=== PATIENT | female | born 1995 | race Caucasian/White ===

== ENCOUNTER 2023-08-19 20:46 | Emergency (ER) | payer BC, SELFPAY ==
[2023-08-19 20:54] VITALS: BP 129/81; PULSE 92; RESP 16; TEMP 36.3; O2SAT 99; BMI 22.3
--- NOTE | 2023-08-19 20:59 | US_ITS ---
Patient: PABLO CAVAZOS Facility:?[facility] Patient ID:?[id number] Site Patient ID:?[id number]. Site :?1993 Study:?US-OB Pelvis OB TV-08/19/2023 10:31:59 PM Ordering Physician:?ISAURO KELLOGG M.D. Final Report: INDICATION: 6 weeks - cramping/bleeding. TECHNIQUE: Ultrasound OB pelvis transabdominal and transvaginal. Real-time melendrez-scale imaging of the pelvis was performed. COMPARISON: None. FINDINGS: No sign of intrauterine or ectopic . Endometrium is empty and measures 8 mm in thickness. No signs of hemorrhage. scar is noted. The uterus is retroverted. The ovaries are of normal size. Right paraovarian cyst measuring up to 1.0 cm, simple appearing. Trace free fluid noted in the cul-de-sac. IMPRESSION: No intrauterine or ectopic viable identified. Trace free fluid in the cul-de-sac, of unknown etiology. Dictated by Duc Ly MD @ 08/19/2023 11:45:46 PM Signed by:?Duc Ly MD @08/19/2023 11:45:46 PM (Electronic Signature)
[2023-08-19 21:26] LABS: Basophils Absolute Auto 0.03 K/uL (0.00-0.30); Basophils Percent Auto 0.3 % (0.0-3.0); Eosinophils Absolute Auto 0.22 K/uL (0.00-0.50); Eosinophils Percent Auto 2.5 % (0.0-7.0); Hematocrit 37.3 % (33.0-51.0); Hemoglobin* 12.5 gm/dL (12.0-16.0); Immature Granulocytes Abs Auto 0.01 K/uL (0.00-0.30); Immature Granulocytes Pct Auto 0.1 %; Lymphocytes Absolute Auto 2.18 K/uL (0.90-2.90); Lymphocytes Percent Auto 24.9 % (20-44); Mean Corpuscular HGB Conc 34 gm/dL (32-36); Mean Corpuscular Hemoglobin 30 pg (26-34); Mean Corpuscular Volume 89 fL (80-100); Monocytes Percent Auto 6.6 % (0.0-11.0); Neutrophils Absolute Auto 5.74 K/uL (1.7-7.0); Neutrophils Percent Auto 65.6 % (42.0-72.0); Platelet Count* 260 K/uL (140-440); Red Blood Count 4.17 m/uL (4.00-5.20); White Blood Count* 8.76 K/uL (4.50-11.00)
[2023-08-19 22:01] LABS: HCG Quantitative* 38.27 mIU/mL
[2023-08-19 22:27] LABS: Slide Review Reflex No
[2023-08-19 22:55] LABS: HCG Qualitative Serum* Positive (Negative)
--- NOTE | 2023-08-19 23:12 | ED_ITS ---
HPI - General Adult General Chief complaint: Vaginal Bleeding Stated complaint: vaginal bleeding, 6 wks preg Time Seen by Provider: 08/19/23 22:42 History of Present Illness HPI narrative: Patient started bleeding tonight close to amount of average menstrual cycle . 6 weeks . 1 previous 13 years ago. 27-year-old woman presenting with significant other to the emergency department with concern of vaginal bleeding. By LMP would estimate herself to be 6 weeks . Reviewing records was recommended to return to clinic at 8 weeks. Began having menstrual level bleeding this evening. By the time I am seeing Ms. Camarillo she has had prior ordered ultrasound in very busy emergency department. I have discussed findings with comfort station attendant. Initial labs were also ordered. She is not complaining of much pain. No shortness of breath or lightheadedness. History of prior placental abruption and delivery, C- section. Related Data Previous Rx's Medication Instructions Recorded sertraline 50 mg tablet 75 mg (1.5 x 50 mg) PO QDAY #135 05/28/23 tabs Allergies Allergy/AdvReac Type Severity Reaction Status Date / Time No Known Allergies Allergy Unknown Unverified 05/27/23 15:33 Review of Systems Status of ROS: Reports: 6 or more systems reviewed and unremarkable except as noted in History and below [facility] Medical History Abnormal Pap smear of cervix ?R87.619 - Unspecified abnormal cytological findings in specimens from cervix uteri (ICD-10) History of delivery ?Z87.51 - Personal history of pre-term labor (ICD-10) History of pre-eclampsia ?Z87.59 - Personal history of other complications of , childbirth and the puerperium (ICD-10) History of placental abruption ?Z87.59 - Personal history of other complications of , childbirth and the puerperium (ICD-10) History of anemia ?Z86.2 - Personal history of diseases of the blood and blood-forming organs and certain disorders involving the immune mechanism (ICD-10) Surgical History S/P section ?Z98.891 - History of uterine scar from previous surgery (ICD-10) Family History Family/Other Stroke High blood pressure Grandmother Thyroid cancer Grandmother Bleeding disorder Social History What is your current living situation?: I presently have a place to live Problems where you live: no known problems In the past 12 months, utilities in danger of being shut off: no In past 12 months, lack of transportation kept you from medical appts, meetings, work, or getting things needed for daily living: no In the past 12 mos, have been you worried that your food would run out before you had money to buy more?: never true Smoking Status: Never smoker Second hand tobacco smoke exposure: No How often do you have a drink containing alcohol: never AUDIT-C Alcohol total score: 0 Non-prescribed substance use: denies use How often does anyone, including family, friends and others, physically hurt you : never How often does anyone, including family, friends and others, insult or talk down to you: never How often does anyone, including family, friends and others, threaten you with harm: never How often does anyone, including family, friends and others, scream or curse at you: never Little interest or pleasure in doing things: not at all Feeling down, depressed, or hopeless: not at all Exam Narrative: Exam Narrative: Pleasant. Very calm. Seated the edge of the bed. Breathing easily. Cheeks look a little flushed. Here with appropriately attentive significant other. Vitals also noted. Reassuring. Regular rhythm reported. Const: Vital Signs, click to edit/add: Vital Signs - 24 hr 08/19/23 20:54 08/20/23 00:38 08/20/23 00:39 Temperature 97.3 F L 98.1 F 98.1 F Pulse Rate [Pulse Oximeter] 92 84 84 Respiratory Rate 16 16 16 Blood Pressure [Ri t Upper Arm] 129/81 118/74 118/74 Pulse Oximetry 99 99 Oxygen Delivery Me thod Room Air Room Air Documenting provider has reviewed patient's vital signs: yes Course Vital Signs Vital signs: Initial Vital Signs Temperature 97.3 F L 08/19/23 20:54 Temperature Source Temporal Artery Scan 08/19/23 20:54 Pulse Rate 92 08/19/23 20:54 Respiratory Rate 16 08/19/23 20:54 Blood Pressure 129/81 08/19/23 20:54 Blood Pressure Mean 97 08/19/23 20:54 Blood Pressure Position Sitting 08/19/23 20:54 Pulse Oximetry 99 08/19/23 20:54 Oxygen Delivery Method Room Air 08/19/23 20:54 Vital Signs Temperature 97.3 F L 08/19/23 20:54 Pulse Rate 92 08/19/23 20:54 Respiratory Rate 16 08/19/23 20:54 Blood Pressure 129/81 08/19/23 20:54 Pulse Oximetry 99 08/19/23 20:54 Oxygen Delivery Method Room Air 08/19/23 20:54 Temperature 98.1 F 08/20/23 00:39 Pulse Rate 84 08/20/23 00:39 Respiratory Rate 16 08/20/23 00:39 Blood Pressure 118/74 08/20/23 00:39 Pulse Oximetry 99 08/20/23 00:38 Oxygen Delivery Method Room Air 08/20/23 00:38 Medical Decision Making MDM Narrative Medical decision making narrative: Given description would have concern certainly of spontaneous miscarriage. Ectopic remains in differential. Cbc had been resulted prior to my s eeing Ms. Lucas. Hemoglobin of 12.5. She has been anemic in the past. HCG quantitative had not been resulted adding a urine qualitative hCG is positive quantitative eventually resulted at at 38. This would be quite inconsistent with 6 week . I discussed findings with comfort station attendant; noted empty uterus. Normal ovaries and a small paratubal cyst on the left. No ectopic. Need blood type yet. This was ordered. A+. RhoGAM not necessary This would appear to be a complete spontaneous miscarriage. With relatively normal hemoglobin and very low quantitative hCG serum, absent other developments, I do not think requires further follow-up. Radiology over-read of transvaginal ultrasound as below :?1993 Study:?US-OB Pelvis OB TV-08/19/2023 10:31:59 PM Ordering Physician:?HUMBERTO PERRY M.D. Final Report: INDICATION: 6 weeks - cramping/bleeding. TECHNIQUE: Ultrasound OB pelvis transabdominal and transvaginal. Real-time melendrez-scale imaging of the pelvis was performed. COMPARISON: None. FINDINGS: No sign of intrauterine or ectopic . Endometrium is empty and measures 8 mm in thickness. No signs of hemorrhage. scar is noted. The uterus is retroverted. The ovaries are of normal size. Right paraovarian cyst measuring up to 1.0 cm, simple appearing. Trace free fluid noted in the cul-de-sac. IMPRESSION: No intrauterine or ectopic viable identified. Trace free fluid in the cul-de-sac, of unknown etiology. See patient discharge plan further discussion Lab Data Lab results reviewed: Yes I reviewed the patient's lab results Labs: Lab Results 08/19/23 08/19/23 Range/Units 21:21 23:47 WBC 8.76 (4.50-11.00) K/uL RBC 4.17 (4.00-5.20) m/uL Hgb 12.5 (12.0-16.0) gm/dL Hct 37.3 (33.0-51.0) % MCV 89 (80-100) fL MCH 30 (26-34) pg MCHC 34 (32-36) gm/dL RDW Coeff of Ham 12.0 (11.5-15.5) % Plt Count 260 (140-440) K/uL Neut % (Auto) 65.6 (42.0-72.0) % Lymph % (Auto) 24.9 (20-44) % [place] % (Auto) 6.6 (0.0-11.0) % Eos % (Auto) 2.5 (0.0-7.0) % Baso % (Auto) 0.3 (0.0-3.0) % Neut # (Auto) 5.74 (1.7-7.0) K/uL Lymph # (Auto) 2.18 (0.90-2.90) K/uL [place] # (Auto) 0.60 (0.00-0.90) K/UL Eos # (Auto) 0.22 (0.00-0.50) K/uL Baso # (Auto) 0.03 (0.00-0.30) K/uL Abs Immat Gran (auto) 0.01 (0.00-0.30) K/uL Imm/Tot Granulo (auto) 0.1 % HCG, Qual Positive (Negative) HCG, Quant 38.27 mIU/mL Blood Type A Positive Discharge Plan Discharge Clinical Impression: Complete miscarriage, Vaginal bleeding Patient Disposition: Home w/ Parent or Adult Condition: Stable Additional Instructions: Since your blood type is A positive, you would not need a medication like RhoGAM in light of this bleeding/miscarriage. This small paraovarian cyst should not be an issue. Return for increasing bleeding such that you are soaking through 1 heavy pad an hour for 2 consecutive hours, marked increase in persistent abdominal pain, increasing shortness of breath or lightheadedness. Prescriptions: No Action sertraline 50 mg tablet 75 mg PO QDAY Qty: 135 3RF Follow Up/Referrals: Yazmin Jean, [employer] [Primary Care Provider] - Stand Alone Forms: [facility] Info Instructions
[2023-08-20 00:38] VITALS: BP 118/74; PULSE 84; RESP 16; TEMP 36.7; O2SAT 99
[2023-08-20 00:39] VITALS: BP 118/74; PULSE 84; RESP 16; TEMP 36.7
== END 2023-08-20 00:39 | disposition home or self-care (01) ==
PROVIDERS: Emergency Medicine Emergency Medical Services; Emergency Provider Family Medicine; PCP Registered Nurse
DX: O03.9 Complete or unspecified spontaneous abortion without complication (principal)
CPT/HCPCS: 36415; 76817; 81025; 84702; 84703; 85025; 86900; 86901; 99284

== ENCOUNTER 2023-11-27 11:23 | Outpatient (CLI) | payer BC, SELFPAY | END 2023-11-27 11:24 | disposition home or self-care (01) | LOC: NFLDREF 11:25 | PROVIDERS: Visit Provider Obstetrics & Gynecology | DX: O20.9 Hemorrhage in early pregnancy, unspecified (principal) | CPT/HCPCS: 84702 ==

== ENCOUNTER 2023-11-29 14:08 | Outpatient (CLI) | payer BC, SELFPAY ==
[2023-11-29 15:01] LABS: HCG Quantitative* < 2.39 mIU/mL
== END 2023-11-29 14:09 | disposition home or self-care (01) ==
LOC: LAB 14:09
PROVIDERS: Visit Provider Obstetrics & Gynecology
DX: O20.9 Hemorrhage in early pregnancy, unspecified (principal)
CPT/HCPCS: 36415; 84702

== ENCOUNTER 2024-04-08 08:11 | Outpatient (CLI) | payer BC, SELFPAY ==
--- NOTE | 2024-04-08 08:15 | CRLHL7_ITS ---
For Patients: As a result of the Cures Act, medical imaging exams and procedure reports are released immediately into your electronic medical record. You may view this report before your referring provider. If you have questions, please contact your health care provider. INDICATION: First trimester scan, establish dates. COMPARISON: None. TECHNIQUE: Real-time melendrez-scale imaging of the pelvis was performed. FINDINGS: Sonographic imaging demonstrates a single living intrauterine gestation. The embryo demonstrates a regular cardiac rate measuring 168 beats per minute. The embryo`s crown-rump length measurement of 1.8 cm corresponds to a gestational age of 8 weeks 2 days with a sonographic due date of 11/16/2024. There is a normal-appearing yolk sac. There are no gross abnormalities noted within the embryo at this early state of development. The gestational sac has a normal appearance. There is a 5.1 x 1.2 x 0.3 cm perigestational hemorrhage. The amount of fluid within the sac appears appropriate for gestational age. The cervix is closed. The myometrium appears normal. Corpus luteal cyst right ovary. Simple right adnexal cyst measures 1.2 cm. Trace pelvic free fluid. Incidental calcification within the left ovary measuring 1.1 cm. IMPRESSION: Single living intrauterine with sonographic gestational age 8 weeks 2 days and sonographic due date 11/16/2024. Dictated by Humberto Tracy MD @ 04/09/2024 6:08:48 PM (Electronically Signed)
== END 2024-04-08 08:12 | disposition home or self-care (01) ==
LOC: US 08:11
PROVIDERS: Visit Provider Registered Nurse
DX: Z34.91 Encounter for supervision of normal pregnancy, unspecified, first trimester (principal); Z3A.08 8 weeks gestation of pregnancy
CPT/HCPCS: 76817

== ENCOUNTER 2024-04-08 09:21 | Outpatient (CLI) | payer BC, SELFPAY ==
[2024-04-08 16:47] LABS: Chlamydia DNA Amplified* NOT DETECTED (No Detected); GC DNA Amplified* NOT DETECTED (No Detected)
[2024-04-09 21:58] LABS: HPV Source Cervix; HPV, High Risk by TMA Not Detected
== END 2024-04-08 09:22 | disposition home or self-care (01) ==
PROVIDERS: PCP Registered Nurse; Visit Provider Registered Nurse
DX: Z12.4 Encounter for screening for malignant neoplasm of cervix (principal); Z34.91 Encounter for supervision of normal pregnancy, unspecified, first trimester; Z3A.08 8 weeks gestation of pregnancy
CPT/HCPCS: 82565; 82570; 83021; 84156; 84450; 84460; 84520; 86592; 86703; 86704; 86706; 86762; 86787; 86803; 86850; 86900; 86901; 87086; 87340; 87491; 87591; 87624; 87625; 88141; 88142

== ENCOUNTER 2024-06-28 10:13 | Outpatient (CLI) | payer OTHER, SELFPAY | END 2024-06-28 10:14 | disposition home or self-care (01) | LOC: NFLDREF 10:14 | PROVIDERS: Visit Provider Obstetrics & Gynecology | DX: Z34.82 Encounter for supervision of other normal pregnancy, second trimester (principal); Z87.51 Personal history of pre-term labor; Z87.59 Personal history of other complications of pregnancy, childbirth and the puerperium | CPT/HCPCS: 85610; 85613; 85730; 86146; 86147 ==

== ENCOUNTER 2024-07-01 08:00 | Outpatient (CLI) | payer OTHER, SELFPAY | END 2024-07-01 08:01 | disposition home or self-care (01) | LOC: NFLDREF 07-04 01:51 | PROVIDERS: Visit Provider Registered Nurse | DX: O09.212 Supervision of pregnancy with history of pre-term labor, second trimester (principal); Z3A.16 16 weeks gestation of pregnancy; Z87.59 Personal history of other complications of pregnancy, childbirth and the puerperium | CPT/HCPCS: 82570; 84156 ==

== ENCOUNTER 2024-08-25 10:08 | Outpatient (CLI) | payer OTHER, SELFPAY | END 2024-08-25 10:09 | disposition home or self-care (01) | LOC: NFLDREF 08-29 00:04 | PROVIDERS: Visit Provider Obstetrics & Gynecology | DX: Z34.83 Encounter for supervision of other normal pregnancy, third trimester (principal) | CPT/HCPCS: 86592 ==

== ENCOUNTER 2024-08-25 10:09 | Outpatient (CLI) | payer OTHER, SELFPAY ==
--- NOTE | 2024-08-25 10:15 | CRLHL7_ITS ---
For Patients: As a result of the Century Cures Act, medical imaging exams and procedure reports are released immediately into your electronic medical record. You may view this report before your referring provider. If you have questions, please contact your health care provider. OB ULTRASOUND LMP: 02/11/2024. PARVEZ by LMP: 11/17/2024. GA: 28 w, 0 d. Single. Comparison: 06/21/2024. INDICATION: Marginal cord insert. TECHNIQUE: Real time grayscale imaging of the fetus was performed. Transabdominal. CERVIX: Not visualized. POSITIONING: Vertex. AMNIOTIC FLUID: 6.8 cm. SDP (N: greater than 2 x 1 cm) PLACENTA: Technique: Transabdominal. PLACENTA POSITION: Posterior. DOPPLER: heart rate: 157 bpm. BIOMETRY: BPD: 7.2 cm. 28 w, 6 d, 65 percent. HC: 26.7 cm. 29 w, 1 d, 54 percent. AC: 24.6 cm. 28 w, 6 d, 68 percent. FL: 5.6 cm. 29 w, 2 d, 73 percent. FL/AC ratio: 22.63 percent. HC/AC ratio: 1.09. EFW: 1318 g. Weight: 2 lbs, 14 oz. age by this US: 29 w, 0 d. PARVEZ by this US: 11/10/2024. Percentile by PARVEZ: 76 percent. IMPRESSION: 1. Sonographic gestational age 29 weeks 0 days and sonographic due date 11/10/2024. Sonographic age is 1 week ahead of the clinical age. 2. Estimated weight 76th percentile. Abdominal circumference 68th percentile. Humberto Tracy M.D. Diagnostic Radiologist [email or web address] JOANNA/zhane phelan/Dictated by: Humberto Tracy MD @ 08/25/2024 11:26:00 AM (Electronically Signed)
== END 2024-08-25 10:10 | disposition home or self-care (01) ==
LOC: US 10:09
PROVIDERS: Visit Provider Obstetrics & Gynecology
DX: O43.193 Other malformation of placenta, third trimester (principal); O36.63X0 Maternal care for excessive fetal growth, third trimester, not applicable or unspecified; Z3A.28 28 weeks gestation of pregnancy
CPT/HCPCS: 76816

== ENCOUNTER 2024-08-31 08:46 | Outpatient (CLI) | payer OTHER, SELFPAY | END 2024-08-31 08:47 | disposition home or self-care (01) | LOC: NFLDREF 09-02 23:33 | PROVIDERS: Visit Provider Obstetrics & Gynecology | DX: R73.09 Other abnormal glucose (principal) | CPT/HCPCS: 82951; 82952 ==

== ENCOUNTER 2024-09-22 08:25 | Outpatient (CLI) | payer OTHER, SELFPAY ==
--- NOTE | 2024-09-22 08:15 | CRLHL7_ITS ---
For Patients: As a result of the Century Cures Act, medical imaging exams and procedure reports are released immediately into your electronic medical record. You may view this report before your referring provider. If you have questions, please contact your health care provider. OB ULTRASOUND BIOPHYSICAL PROFILE, 09/22/2024 CLINICAL HISTORY: GDMA2 and zully CI. COMPARISON: 08/25/2024, 04/08/2024. TECHNIQUE: Real time melendrez scale imaging of the fetus was performed. Transabdominal imaging performed. FINDINGS: LMP: 02/11/2024. PARVEZ by LMP: 11/17/2024. GA: 32 weeks 0 days. GESTATION: Single. CERVIX: Visualized. POSITIONING: Vertex. AMNIOTIC FLUID: 7.1 cm SDP. PLACENTA: Technique: TA. Placenta Position: Posterior. DOPPLERS: Heart Rate: 138 bpm. BIOPHYSICAL PROFILE: Gross Body Movements: 2 Tone: 2 Respiratory Activity: 2 Amniotic Fluid SDP: 2 Total Score: 8/8 BIOMETRY: BPD: 8.6 cm, 34 weeks 4 days. 95.8% HC: 31.2 cm, 34 weeks 6 days. 86.0% AC: 29.5 cm, 33 weeks 4 days. 87.3% FL: 6.3 cm, 32 weeks 4 days. 51.0% FL/AC Ratio: 21.3% HC/AC Ratio: 1.1. EFW: 2199 grams, 4 lb 14 oz. Age by this US: 33 weeks 6 days. PARVEZ by this US: 11/04/2024. Percentile by PARVEZ: 83.9% IMPRESSION: 1. Normal biophysical profile score of 8/8. 2. Sonographic gestational age 33 weeks 6 days and sonographic due date 11/04/2024. Sonographic age 13 days ahead of the clinical age. 3. Estimated weight 84th percentile. Abdominal circumference 87th percentile. Humberto Tracy M.D. Diagnostic Radiologist [email or web address] Transcribed: 1:24 pm DW/Dictated by: Humberto Tracy MD @ 09/23/2024 12:30:00 PM (Electronically Signed)
== END 2024-09-22 08:26 | disposition home or self-care (01) ==
LOC: US 08:25
PROVIDERS: Visit Provider Physician Assistant
DX: O24.419 Gestational diabetes mellitus in pregnancy, unspecified control (principal); O36.63X0 Maternal care for excessive fetal growth, third trimester, not applicable or unspecified; Z3A.33 33 weeks gestation of pregnancy
CPT/HCPCS: 76816; 76819

== ENCOUNTER 2024-09-29 13:55 | Outpatient (CLI) | payer OTHER, SELFPAY ==
--- NOTE | 2024-09-29 14:00 | CRLHL7_ITS ---
For Patients: As a result of the Century Cures Act, medical imaging exams and procedure reports are released immediately into your electronic medical record. You may view this report before your referring provider. If you have questions, please contact your health care provider. INDICATION: GDMA2 and marginal cord insertion. COMPARISON: OB ultrasound 09/22/2024. TECHNIQUE: Ultrasound OB pelvis biophysical profile. Real time melendrez scale imaging of the fetus was performed without non-stress testing. FINDINGS: Sonographic imaging demonstrates a single living intrauterine gestation. The fetus has a regular cardiac rate of 125 beats per minute. The fetus has a cephalic orientation. The placenta lies posteriorly. Single deepest pocket measures 5.7 cm. breathing movements: 2/2 Gross body movements: 2/2 tone: 2/2 Amniotic fluid volume: 2/2 Total: 12/09 IMPRESSION: Normal biophysical profile score 8 out of 8. Dictated by Elisa Abdalla MD @ 09/30/2024 3:28:14 AM (Electronically Signed)
== END 2024-09-29 13:56 | disposition home or self-care (01) ==
LOC: US 13:55
PROVIDERS: Visit Provider Physician Assistant
DX: O24.419 Gestational diabetes mellitus in pregnancy, unspecified control (principal); O43.199 Other malformation of placenta, unspecified trimester
CPT/HCPCS: 76819; 82728

== ENCOUNTER 2024-10-06 09:17 | Outpatient (CLI) | payer OTHER, SELFPAY ==
--- NOTE | 2024-10-06 09:15 | CRLHL7_ITS ---
For Patients: As a result of the Cures Act, medical imaging exams and procedure reports are released immediately into your electronic medical record. You may view this report before your referring provider. If you have questions, please contact your health care provider. OB ULTRASOUND BIOPHYSICAL PROFILE, 10/06/2024 CLINICAL HISTORY: Marginal CI and H/O preeclampsia. COMPARISON: 09/29/2024, 09/22/2024, 08/25/2024. TECHNIQUE: Real time melendrez scale imaging of the fetus was performed. Transabdominal imaging performed. FINDINGS: LMP: 02/11/2024. PARVEZ by LMP: 11/17/2024. GA: 34 weeks 0 days. CERVIX: Not visualized. POSITIONING: Vertex. AMNIOTIC FLUID: 7.0 cm SDP. BIOPHYSICAL PROFILE: Gross Body Movements: 2 Tone: 2 Respiratory Activity: 2 Amniotic Fluid/SDP: 2 Total Score: 8/8 PLACENTA: Technique: TA. Position: Posterior. DOPPLERS: Heart Rate: 137 bpm. IMPRESSION: Normal biophysical profile score of 8/8. Humberto Tracy M.D. Diagnostic Radiologist [email or web address] Transcribed: 10/10/2024 DW/Dictated by: Humberto Tracy MD @ 10/10/2024 5:39:00 AM (Electronically Signed)
== END 2024-10-06 09:18 | disposition home or self-care (01) ==
LOC: US 09:17
PROVIDERS: Visit Provider Physician Assistant
DX: O43.193 Other malformation of placenta, third trimester (principal); O24.419 Gestational diabetes mellitus in pregnancy, unspecified control; Z87.59 Personal history of other complications of pregnancy, childbirth and the puerperium; Z3A.34 34 weeks gestation of pregnancy
CPT/HCPCS: 76819

== ENCOUNTER 2024-10-13 13:48 | Outpatient (CLI) | payer OTHER, SELFPAY ==
--- NOTE | 2024-10-13 13:45 | CRLHL7_ITS ---
For Patients: As a result of the Century Cures Act, medical imaging exams and procedure reports are released immediately into your electronic medical record. You may view this report before your referring provider. If you have questions, please contact your health care provider. INDICATION: Gestational diabetes, marginal cord insertion TECHNIQUE: Ultrasound OB pelvis transabdominal. Real-time melendrez-scale imaging of the fetus was performed. COMPARISON: Ob ultrasound 625 FINDINGS: Gestation: Single Presentation: Cephalic Placenta location: Posterior heart rate: 202 bpm Amniotic fluid volume single deepest pocket 6.2 cm, 2/2. motion 2/2. tone 2/2. breathing movements 2/2. IMPRESSION: Single live intrauterine gestation with a biophysical profile 12/09 at 35 weeks, 0 days. PARVEZ of 11/17/2024. Abnormally elevated heart rate at 202 bpm Dictated by Viv Santillan MD @ 10/13/2024 3:02:28 PM (Electronically Signed)
== END 2024-10-13 13:49 | disposition home or self-care (01) ==
LOC: US 13:49
PROVIDERS: Visit Provider Physician Assistant
DX: O24.419 Gestational diabetes mellitus in pregnancy, unspecified control (principal); Z3A.35 35 weeks gestation of pregnancy
CPT/HCPCS: 59025; 76819; G0463

== ENCOUNTER 2024-10-20 08:14 | Outpatient (CLI) | payer OTHER, SELFPAY ==
--- NOTE | 2024-10-20 08:15 | CRLHL7_ITS ---
For Patients: As a result of the Cures Act, medical imaging exams and procedure reports are released immediately into your electronic medical record. You may view this report before your referring provider. If you have questions, please contact your health care provider. OBSTETRICAL ULTRASOUND FOLLOW-UP ??? BIOPHYSICAL PROFILE, 10/20/2024 INDICATION: GDMA2 and marginal cord insert. CLINICAL HISTORY: LMP: 02/11/2024 PARVEZ by LMP: 11/17/2024 Gestational Age: 36 weeks 0 days COMPARISON: 10/13/2024, 10/06/2024, 09/29/2024 TECHNIQUE: Real-time melendrez-scale transabdominal imaging of the fetus was performed. FINDINGS: Fetus: Single Cervix: Not visualized positioning: Vertex Amniotic Fluid: 6.3 cm SDP BIOPHYSICAL PROFILE: Gross body movements: 2 tone: 2 Respiratory activity: 2 Amniotic fluid SDP: 2 Total score: 8 Placenta technique: Transabdominal Placenta position: Posterior heart rate: 176 bpm BIOMETRY: BPD: 9.2 cm, 37 weeks 2 days, 88.2% HC: 33.5 cm, 38 weeks 2 days, 75.7% AC: 33.2 cm, 37 weeks 1 day, 86.1% FL: 6.9 cm, 35 weeks 3 days, 31.3% FL/AC Ratio: 20.8% HC/AC ratio: 1.0 EFW: 3049 grams; 6 lbs. 12 oz. age by this ultrasound: 37 weeks 0 days PARVEZ by this ultrasound: 11/10/2024 Percentile by PARVEZ: 74.5% IMPRESSION: 1. Sonographic gestational age 37 weeks 0 days and sonographic due date 11/10/2024. Sonographic age is 1 week ahead of the clinical age. 2. Estimated weight is 75th percentile. Abdominal circumference is 86th percentile. 3. Normal biophysical profile score of 8/8. HUMBERTO WEIR M.D. Diagnostic Radiologist [email or web address] Transcribed: 12:[address]/Dictated by: Humberto Weir MD @ 10/20/2024 11:41:00 AM (Electronically Signed)
--- OUTSIDE RECORDS SUMMARY | 2024-10-21 01:01 | XMS_ITS | Clinical Summary ---
Author Organization [facility] Address [address] [place] [address]. [place] [address] Care Team Providers Care Rehab Therapist Name Role Phone No Ref-Primary, Physician Primary Care Provider Allergies No known active allergies Medications sertraline (ZOLOFT) 50 MG tablet Take 50 mg by mouth daily. Active Vit-Fe Fumarate-FA ( MULTIVITAMIN PLUS IRON) 27-1 MG TABS Take 1 tablet by mouth daily. Active aspirin (ASA) 81 MG chewable tablet Take 81 mg by mouth daily. Active Social History Tobacco Use Types Packs/Day Years Used Date Smoking Tobacco: Never Assessed Estimated Date of Delivery Comme nts Yes 11/17/2024 Based on last me nstrual period of 02/11/2024 Sex and Gender Information Value Date Recorded Sex Assigned at Female 05/08/2024 6:20 PM LANDSCAPE DRAFTER Legal Sex Female 1:41 PM LANDSCAPE DRAFTER Gender Identity Female 05/08/2024 6:20 PM LANDSCAPE DRAFTER Sexual Orientation Straight 05/08/2024 6: 20 PM LANDSCAPE DRAFTER Last Filed Vital Signs Vital Sign Reading Time Taken Comments Blood Pressure 121/78 05/10/2024 11:23 AM LANDSCAPE DRAFTER Pulse 80 05/10/2024 11:23 AM LANDSCAPE DRAFTER Temperature - - Respiratory Rate - - Oxygen Saturation - - Inhaled Oxygen Concentration - - Weight - - Height - - Body Mass Index - - Plan of Treatment Health Maintenance Due Date Last Done Comments ADVANCE CARE PLANNING 1993 ANNUAL REVIEW OF HM ORDERS 1993 HIV SCREENING 2008 HEPATITIS C SCREENING 12/23/2011 YEARLY PREVENTIVE VISIT 04/11/2020 04/11/20, 04/21/2018, 04/17/2017, Additional history exists PAP 04/12/2023 04/12/2020 COVID-19 VACCINE (2023- season) 2024 MATERNAL SCREENING DISCUSSION 04/21/2024 PHQ-2 (once per calendar year) 2024 OBGCT (OB) 07/28/2024 TDAP VACCINE () 08/18/2024 GROUP B STREP SCREENING 10/20/2024 INFLUENZA VACCINE (Season Ended) 2025 03/19/2010 DTAP/TDAP/TD VACCINE (8 - Td or Tdap) 04/21/2028 04/21/2018, 07/27/2007, 11/30/1998, Additional history exists ZOSTER VACCINE (1 of 2) 12/23/2043 HEPATITIS B VACCINE Completed 09/25/1994, 02/12/1994, 01/07/1994 MENINGITIS VACCINE Aged Out 07/27/2007 No longer eligible based on patient's age to complete this topic HPV VACCINE Completed 10/04/2012, 10/02, 07/27/2007 PNEUMOCOCCAL VACCINE: PEDIATRICS (0 to 5 YEARS) AND AT-RISK PATIENTS (6 to 49 YEARS) Aged Out No longer eligible based on patient's age to complete this topic RSV VACCINE (No Doses Required) Completed [facility] [employer] Care Teams Rehab Therapist Relationship Specialty Start Date End Date No Ref-Primary, Physician PCP - General 04/08/24
== END 2024-10-20 08:15 | disposition home or self-care (01) ==
LOC: US 08:14
PROVIDERS: Visit Provider Physician Assistant
DX: O24.419 Gestational diabetes mellitus in pregnancy, unspecified control (principal); O36.63X0 Maternal care for excessive fetal growth, third trimester, not applicable or unspecified; Z3A.36 36 weeks gestation of pregnancy
CPT/HCPCS: 76816; 76819; 87081; 87653

== ENCOUNTER 2024-10-27 13:54 | Outpatient (CLI) | payer OTHER, SELFPAY ==
--- NOTE | 2024-10-27 14:00 | CRLHL7_ITS ---
For Patients: As a result of the Century Cures Act, medical imaging exams and procedure reports are released immediately into your electronic medical record. You may view this report before your referring provider. If you have questions, please contact your health care provider. OB ULTRASOUND BIOPHYSICAL PROFILE FOLLOW-UP LIMITED, 10/27/2024 CLINICAL HISTORY: GDMA2, marginal cord insertion. COMPARISON: 10/20/2024, 10/13/2024, 10/06/2024. TECHNIQUE: Real time melendrez scale imaging of the fetus was performed. Transabdominal imaging performed. FINDINGS: PARVEZ by LMP: 11/17/2024. GA: 37 weeks 0 days. Cervix: Not visualized. Positioning: Vertex. Amniotic Fluid: 7 cm SDP. BIOPHYSICAL PROFILE: Gross Body Movements: 2 Tone: 2 Respiratory Activity: 2 Amniotic Fluid SDP: 2 Total: 8/8 Placenta: Technique: TA. Placenta Position: Posterior. Dopplers: Heart Rate: 183 bpm. IMPRESSION: Normal biophysical profile score of 8/8. Humberto Tracy M.D. Diagnostic Radiologist [email or web address] Transcribed: 9:35 am DW/Dictated by: Humberto Tracy MD @ 10/28/2024 6:19:00 AM (Electronically Signed)
--- OUTSIDE RECORDS SUMMARY | 2024-10-28 01:04 | XMS_ITS | Clinical Summary ---
Author Organization [facility] Address [address] [place] [address]. [place] [address] Care Team Providers Care Records Management Coordinator Name Role Phone No Ref-Primary, Physician Primary [...] Sex Assigned at Female 05/08/2024 6:[address] RECORDER Legal Sex Female 1:[address] RECORDER Gender Identity Female 05/08/2024 6:[address] RECORDER Sexual Orientation Straight 05/08/2024 6: [address] RECORDER Last Filed Vital Signs Vital Sign Reading Time Taken Comments Blood Pressure 121/78 05/10/2024 11:[address] RECORDER Pulse 80 05/10/2024 11:[address] RECORDER Temperature - - Respiratory Rate - - [...] RSV VACCINE (No Doses Required) Completed Insurance [facility] Care Teams Records Management Coordinator Relationship Specialty Start Date End Date No Ref-Primary, Physician PCP - General 04/08/24
== END 2024-10-27 13:55 | disposition home or self-care (01) ==
LOC: US 13:54
PROVIDERS: Visit Provider Physician Assistant
DX: O24.419 Gestational diabetes mellitus in pregnancy, unspecified control (principal); O43.193 Other malformation of placenta, third trimester; Z3A.37 37 weeks gestation of pregnancy
CPT/HCPCS: 76819

== ENCOUNTER 2024-11-03 08:18 | Outpatient (CLI) | payer OTHER, SELFPAY ==
--- NOTE | 2024-11-03 08:15 | CRLHL7_ITS ---
For Patients: As a result of the Century Cures Act, medical imaging exams and procedure reports are released immediately into your electronic medical record. You may view this report before your referring provider. If you have questions, please contact your health care provider. INDICATION: Maternal gestational diabetes and marginal cord insertion TECHNIQUE: Ultrasound OB pelvis transabdominal. Real-time melendrez-scale imaging of the fetus was performed with color Doppler and spectral Doppler analysis of the umbilical artery without stress testing. COMPARISON: 10/27/2024 FINDINGS: Sonographic imaging demonstrates a single living intrauterine gestation. Fetus demonstrates a regular cardiac rate of 138 beats per minute. Fetus has a cephalic orientation. The placenta lies posterior. Amniotic fluid volume appears normal with a MVP of 7.9 cm. breathing movements, motion, and tone were all observed. IMPRESSION: Single viable intrauterine with a biophysical profile 12/09. Dictated by Galdino Kong MD @ 11/03/2024 9:40:49 AM (Electronically Signed)
== END 2024-11-03 08:19 | disposition home or self-care (01) ==
LOC: US 08:18
PROVIDERS: Visit Provider Physician Assistant
DX: O24.419 Gestational diabetes mellitus in pregnancy, unspecified control (principal); O43.199 Other malformation of placenta, unspecified trimester
CPT/HCPCS: 76819

== ENCOUNTER 2024-11-10 16:29 | Inpatient (IN) | payer OTHER, SELFPAY ==
[2024-11-10 16:59] VITALS: BMI 32.5
[2024-11-10 17:15] VITALS: BP 127/80; PULSE 83; TEMP 36.8
--- NOTE | 2024-11-10 18:19 | W.PM.LDBA ---
Subjective History of Present Illness Time Seen by Provider: 17:45 Date Seen: 11/10/24 Narrative: Chelsie is being admitted to Labor and Delivery for GDM A2 on insulin well controlled. She is a 28 year old at 39 and 0/7 weeks gestation. Her full history and physical was completed by Dr. Reynolds on 10/28/2024. Please see this for details. She states that she has been having some intermittent contractions today which is new for her. Her baby has been moving normally. She denies leaking fluid, vaginal bleeding, abnormal vaginal discharge, headaches and swelling. Reviewed options for cervical ripening in a patient attempting a TOLAC our limited as prostaglandins are not seen due to chance of uterine rupture increased to approximately 3-4% from 0.5-0.9%. Planning a Cook catheter for cervical ripening overnight low-dose Pitocin to start at midnight followed by an per induction protocol tomorrow morning after the Cook catheter is removed and AROM when seen by Dr. Wilkinson. Specific Issues/Plans G 4 P 0121 : [place]avares - this will be his first child! Chelsie has a 14yo son. Baby: Boy! H&P 10/28 Dr. Reynolds #GDMA2 3hrGTT ordered:06/07 elevated Diabetes education and insulin initiated 09/20/2024: 14 U NPH @[facility] 09/29/24:16 U NPH @[facility] Twice weekly testing, testing form completed by 09/20/24 Growth at 32 and 36 weeks: already ordered due to marginal cord insertion. #History of delivery Desires TOLAC Op notes: Emergent low-transverse section performed at 33 weeks 1 day due to nonreassuring heart tracing, placental abruption, breech presentation. TOLAC consent form given 08/25/24 Signed and sent to scanning 10/20/24 Chance of successful : 56.8% #History of @ 33 weeks: emergent due to placental abruption/breech. Refer to MFM: 05/10 MSAFP at 15-20 weeks: Declined Level II US ([facility] be done at [facility]): normal anatomy, marginal cord insertion, serial growths starting at 28 weeks. #History of preeclampsia LDA at 12 week Baseline pre E labs: BUN 5, Creat 0.4 (L), AST 23, ALT 15, P/C 0.05. 07/01/24: 24hr urine protein: 153mg. Recommend daily low dose aspirin starting at 12 weeks Qweekly home BP check Q4 week growth starting at 28 weeks: surveillance form- filled out 06/28/24 Qweekly BPP @ 32 weeks Consider delivery at 39 weeks APLS testing recommended due to delivery due to hypertensive disorder of w/placental abruption and 2 early SABs. Ordered 06/28/24: Negative. #Anxiety. 50 mg sertraline. Stable at 1st OB. Discussed staying on medication verses weaning off. Encouraged her to consider staying on the medication. Reassured her that this is a well-study medication in . For now, she will continue with 50 mg sertraline. #Rubella nonimmune. Recommend PP vaccine #Anemia 28 weeks Hgb: 10.8mg/dL Start oral iron supplement, did not start 33 weeks Hgb: 10.5, ferritin 5.7, recommend iron supplement every other day Repeat Hgb at [37 weeks] Imagin08/25/2024: BPD: 65.4 percentile, HC: 54.1 percentile, AC: 67 percentile, FL: 72 percentile. EFW: 76 percentile. S DP: 6.8 cm. 09/22/24: Growth ultrasound today: Vertex, SDP: 7.1 cm, BPD: 96 percentile, HC: 86 percentile, AC: 87th percentile, FL: 51 percentile. EFW: 84th percentile, 2199g. BPP 8/8. 10/20/24: Vertex, SDP: 6.3cm, BPP8/8. Growth: BPD: 88%, HC:75%, AC: 86%, FL: 31%. EFW: 3049g, 74.5%. Flu: Recommended. Declines Covid: Not vaccinated. Recommended. Declines. Tdap: given 09/08/24 OB - Problem Based A/P Additional Plan (1) GDM, class A2: Status: Acute Plan 1. Cook catheter placed at 17:58. 60mL of saline in both balloons. 2. Start low dose pitocin at midnight. 3. Cook catheter out by 06:00am on 11/[address] Wilkinson to assume care at 07:00am on 11/11/24 5. Morphine 10mg IM prn for pain. 6. Vistaril 100mg PO x1 for insomnia. 7. GBS negative. Blood type A+ OB Exam Physical Exam Vital signs: Temp Pulse BP 98.3 F 83 127/80 11/10/24 17:15 11/10/24 17:15 11/10/24 17:15 Narrative: GENERAL APPEARANCE: Pleasant, , well-groomed woman in no acute distress. VITAL SIGNS: as noted in nursing notes HEAD: Normocephalic, atraumatic. THYROID: no masses, nodularity, tenderness or enlargement. LUNGS: Clear to auscultation bilaterally without wheezes, rales or rhonchi. HEART: Regular rate and rhythm with normal S1 and S2. No gallop, rub or murmur. ABDOMEN: Gravid. Soft, nontender, nondistended, with normal bowels sounds throughout. EFM: Baseline 130 bpm. Accelerations: Present. Decelerations: Absent. Reactive. Category 1. TOCO: Q4-5 minutes. PRESENTATION: Vertex by Prasanna's maneuvers and SVE. SVE: 2cm/80%/-1/soft/midposition. Singh score: 8 EXTREMITIES: No cyanosis, clubbing, varicosities or edema. NEUROLOGIC: Normal gait and balance. Normal deep tendon reflexes at bilateral patella 2+/2, equal without clonus. PSYCHIATRIC: alert and oriented x3. Normal speech pattern, eye contact and affect. SKIN: Warm, dry, and well perfused. Good turgor. No lesions, nodules or rashes. Verbal consent obtained to place a Cook Catheter. The patient was placed in the dorsal supine position with a slight recline (not flat). Legs were frog-legged. The Cook catheter was placed manually. 60mL of saline was placed in both balloons: placed at 17:58 on 11/10/24.
[2024-11-10 19:29] LABS: Hematocrit 33.7 % (33.0-51.0); Hemoglobin* 10.9 gm/dL (12.0-16.0); Immature Granulocytes Pct Auto 0.6 %; Mean Corpuscular HGB Conc 32 gm/dL (32-36); Mean Corpuscular Hemoglobin 27 pg (26-34); Mean Corpuscular Volume 82 fL (80-100); RDW Coefficient of Variation % 14.4 % (11.5-15.5); Red Blood Count 4.10 m/uL (4.00-5.20); White Blood Count* 12.28 K/uL (4.50-11.00)
[2024-11-10 19:36] VITALS: BP 127/73; PULSE 82
[2024-11-10 19:36] LABS: Immature Granulocytes Abs Auto 0.10 K/uL (0.00-0.30); Lymphocytes Absolute Auto 1.90 K/uL (0.90-2.90); Slide Review Reflex No
[2024-11-11] VITALS (99 sets, daily range): BP systolic 101–152; BP diastolic 50–99; PULSE 72–135; RESP 16–17; TEMP 36.4–37.1; O2SAT 91–100
[2024-11-11] MEDS: LACTATED RINGERS 1000 ML 1,000 ML 124 ML IV (04:21)
[2024-11-11] MEDS: OXYTOCIN 30 unit/500 ML in NS 30 UNIT/500 ML BAG IVPB (04:23)
[2024-11-11] MEDS: LIDOCAINE 2% (PF) 5 ML VIAL EPIDURAL (06:49)
[2024-11-11] MEDS: ROPIVACAINE 0.2% 100 ml 100 ML 12 MG EPIDURAL (06:51)
--- NOTE | 2024-11-11 07:00 | P.ANBPRC_ITS ---
[facility] Medical History Abnormal Pap smear of cervix ?R87.619 - Unspecified abnormal cytological findings in specimens from cervix uteri (ICD-10) History of delivery ?Z87.51 - Personal history of pre-term labor (ICD-10) History of pre-eclampsia ?Z87.59 - Personal history of other complications of , childbirth and the puerperium (ICD-10) History of placental abruption ?Z87.59 - Personal history of other complications of , childbirth and the puerperium (ICD-10) History of anemia ?Z86.2 - Personal history of diseases of the blood and blood-forming organs and certain disorders involving the immune mechanism (ICD-10) Surgical History S/P section ?Z98.891 - History of uterine scar from previous surgery (ICD-10) Family History Family/Other Stroke High blood pressure Grandmother Thyroid cancer Grandmother Bleeding disorder Social History (Updated 10/27/24 @ 15:08 by Madison Reynolds MD) Narrative: Lives in [place] with and son. Self-employed in [employer] No tobacco, EtOH, or recreational drug use during What is your current living situation?: I presently have a place to live Problems where you live: no known problems In the past 12 months, utilities in danger of being shut off: no In past 12 months, lack of transportation kept you from medical appts, meetings, work, or getting things needed for daily living: no In the past 12 mos, have been you worried that your food would run out before you had money to buy more?: never true In the past 12 mos, the food you bought just didn't last and you didn't have money to buy more?: never true Smoking Status: Never smoker Second hand tobacco smoke exposure: No How often do you have a drink containing alcohol: never AUDIT-C Alcohol total score: 0 Non-prescribed substance use: denies use How often does anyone, including family, friends and others, physically hurt you : never How often does anyone, including family, friends and others, insult or talk down to you: never How often does anyone, including family, friends and others, threaten you with harm: never How often does anyone, including family, friends and others, scream or curse at you: never Meds Home Medications and Allergies Home Medications ?Medication ?Instructions ?Recorded ?Confirmed ?Type docosahexaenoic acid 200 mg mg PO 04/08/24 11/08/24 Hi story capsule ( DHA) aspirin 81 mg tablet,delayed 81 mg PO QDAY 07/25/24 History release (Adult Low Dose Aspirin) Blood Glucose Meter #1 08/31/24 11/08/24 Rx Test Strips #100 08/31/24 11/08/24 Rx lancets #100 08/31/24 11/08/24 Rx alcohol swabs (Alcohol Pads) 2 pad topical DAILY #100 09/20/24 11/08/24 Rx insulin NPH isoph U-100 human 100 14 unit (0.14 mL) john bcut .hs #30 mL 09/20/24 11/08/24 Rx unit/mL subcutaneous suspension (Humulin N NPH U-100 Insulin (isophane susp)) insulin syringe-needle U-100 1 mL #100 09/20/2412/26 Rx 30 gauge x 5/16 (Sure Comfort Insulin Syringe) ferrous sulfate 325 mg (65 mg 325 mg PO Q OTHER DAY #9 0 tabs 09/29/24 11/08/24 Rx iron) tablet,delayed release sertraline 50 mg tablet 50 mg PO QDAY #90 tabs 09/2911/08/24 Rx Allergies Allergy/AdvReac Type Severity Reaction Status Date / Time No Known Allergies Allergy Unknown Verified 11/08/24 09:25 Results Labs Labs: Laboratory Results - last 24 hr 11/10/24 19:21 WBC 12.28 H RBC 4.10 Hgb 10.9 L Hct 33.7 MCV 82 MCH 27 MCHC 32 RDW Coeff of Ham 14.4 Plt Count 208 Neut % (Auto) 77.4 H Lymph % (Auto) 15.6 L [place] % (Auto) 5.5 Eos % (Auto) 0.7 Baso % (Auto) 0.2 Neut # (Auto) 9.50 H Lymph # (Auto) 1.90 [place] # (Auto) 0.70 Eos # (Auto) 0.10 Baso # (Auto) 0.00 Abs Immat Gran (auto) 0.10 Imm/Tot Granulo (auto) 0.6 Blood Type A Positive Antibody Screen NEGATIVE Vital Signs Vital Signs: Last Vital Signs Temp 98.3 F 11/11/24 06:57 Pulse 101 H 11/11/24 06:59 Resp 16 11/11/24 04:27 BP 103/55 L 11/11/24 06:59 Pulse Ox 97 11/11/24 06:59 Weight: 86.183 kg Height: 162.56 cm Anesthesia Procedures Epidural Insertion Patient Location: OB Start Time: Stop Time: : Start Date: 11/11/24 Stop Date: 11/11/24 Reason for Block: procedure for pain Patient Position: sitting Performed By: Glenis Mcclellan Preanesthetic Checklist: IV checked, risks and benefits discussed, surgical consent, monitors and equipment checked, pre-op evaluation, timeout performed and anesthesia consent Prep: chlorhexidine gluconate Monitoring: blood pressure monitoring, continuous pulse oximetry and heart rate Approach: midline Vertebral Space: lumbar (1-5) Epidural Technique: MARAH saline Needle Type: Tuohy needle Injection Technique: continuous catheter (continuous catheter) Needle gauge: 17 Needle Length (cm): 10 cm Needle Insertion Depth (cm): 8 Catheter Gauge: 19 Catheter Type: multi-orifice Catheter at skin depth (cm): 15 Test Dose Result: negative and lidocaine 1.5% with epinephrine 1 to 200,000
--- NOTE | 2024-11-11 07:46 | PM.OBPNL ---
Subjective Time Seen by Provider: 08:15 Date Seen: 11/11/24 Narrative: Chelsie is a 1oyo at 39w1d GA ongoing IOL as a TOLAC in the setting of GDMA2. is otherwise complicated by elevated Bp without HTN, history of preE in previous , history of C/S, anemia. IOL has included cook catheter and pitocin, SROM around 0530. Patient is now comfortable with epidural in place. She is agreeableto cervical exam. Objective Exam: General: Alert and oriented, in no acute distress Psych: Appropriate mood and affect Abdomen: Gravid. EFW by US 10/20 was 75%ile with AC 86%ile. NST: Category 1. Baseline bpm, moderate variability, accelerations present, decelerations absent. [place]: Chiquita q3-4 minutes Cervix: 9/90/+1, forebag palpable - ruptured with return of clear fluid. Vital Signs: Last Vital Signs Temp 98.3 F 11/11/24 06:57 Pulse 94 11/11/24 07:44 Resp 16 11/11/24 04:27 BP 105/53 L 11/11/24 07:44 Pulse Ox 97 11/11/24 07:44 Plan Plan: Chelsie is a 28yo at 39w1d GA ongoing IOL as a TOLAC for GDMA2. is otherwise complicated by elevated BP without HTN, anemia, marginal cord insertion, anxiety. Her prior C/S was performed in the setting of preE, abruption and 33 weeks. - IOL has included cook catheter, pitocin and SROM. She is s/p epidural placement, comfortable. Cervix is now 9/90/+1, forebag palpable and ruptured for clear fluid. - Anticipate next exam in 1 hour, sooner as clinically indicated - BT A+ - GBS negative - EFW on 10/20 with composite EFW 75%ile, AC 86%ile. Counseled she is high risk for shoulder dystocia in the setting of GDMA2. Discussed potential interventions that could be required if shoulder dystocia occurs. Counseled on risks including cord compression, hypoxia, neurologic compromise, brachial plexus injury and demise in catastrophic events. Plan to deliver with bed broken down in the event of shoulder, team aware of risk. Patient expressed understanding and is agreeable to plan.
[2024-11-11] MEDS: LACTATED RINGERS 1000 ML 1,000 ML 1123 ML IV (09:25)
--- NOTE | 2024-11-11 12:53 | W.PM.OBVAGDE ---
OB Procedure Vag Delivery Mother Details Mother Details: The patient is a 28 year-old, 4, Para 1, admitted on 11/10/24 at 39 0/7 weeks gestation for IOL due to GDMA2. : 4 Para: 1 Weeks Gestation: 39.1 Admission Date: 11/10/24 Additional Details Amniotic Membrane Status: SROM Amniotic Membrane Rupture Date: 11/11/24 Amniotic Membrane Rupture Time: 05:45 Amniotic Membrane Fluid Description: Clear Analgesia/Anesthesia Type: Epidural Waterbirth: No Pitcoin: Yes Intrapartal Events: Labor Induction Labor Onset: 05:45 Complete: 09:04 Pushin:15 Heart: heart tones during second stage were category 2. Delivery Details Delivery Date: 11/11/24 Delivery Time: 12:26 Route of delivery: Gender: Male Viability: Alive; Heart Rate Present Position at Delivery: OA Delivery Details: Delivered via spontaneous vaginal delivery. Infant was placed on maternal abdomen.? Cord was clamped and cut after a 30-60 second delay. Nose and mouth were bulb suctioned.? weight pending. 1 Minute Interval Total Score: 8 5 Minute Interval Total Score: 9 Additional Details Shoulder Dystocia: No Placenta Delivery Time: 12:29 Placental Delivery Description: Spontaneous Delivery repair: Vicryl Procedure Done: Global Blood Loss: 300 Laceration: Perineal - 2nd Degree Episiotomy Description: None Blood Loss Measurement Type: QBL Bakri Used: No Sponge/Need Count Correct: Yes Cord Vessel Description: 3 Vessels Event Summary Status: Mother and infant were stable after delivery. Disposition: floor
--- NOTE | 2024-11-11 14:06 | PM.ANPOST ---
Post Anesthesia Note Post Anesthesia Note Patient seen: Inpatient Respiratory Status: adequate Cardiovascular Status: adequate Mental Status: baseline Pain: adequate Temp: baseline Anesthetic awareness: N/A Complications: none Follow care: none
--- NOTE | 2024-11-11 14:12 | PM.OBPNL ---
Subjective Time Seen by Provider: 09:15 Date Seen: 11/11/24 Narrative: Chelsie is a 1oyo at 39w1d GA ongoing IOL as a TOLAC in the setting of GDMA2. is otherwise complicated by elevated Bp without HTN, history of preE in previous , history of C/S, anemia. IOL has included cook catheter and pitocin, SROM around 0530. Patient is now comfortable with epidural in place. S/p AROM of forebag at 0815. Agreeable to cervical exam. Objective Exam: General: Alert and oriented, in no acute distress Psych: Appropriate mood and affect Abdomen: Gravid. EFW by US 10/20 was 75%ile with AC 86%ile. NST: Category 1. Baseline bpm, moderate variability, accelerations present, decelerations absent. [place]: Chiquita q5m Cervix: 10/100/+1, BERTHA position suspected Vital Signs: Last Vital Signs Temp 97.7 F 11/11/24 09:55 Pulse 104 H 11/11/24 13:59 Resp 17 11/11/24 09:55 BP 127/64 11/11/24 13:59 Pulse Ox 98 11/11/24 12:15 Plan Plan: Chelsie is a 28yo at 39w1d GA ongoing IOL as a TOLAC for GDMA2. is otherwise complicated by elevated BP without HTN, anemia, marginal cord insertion, anxiety. Her prior C/S was performed in the setting of preE, abruption and 33 weeks. - IOL has included cook catheter, pitocin and SROM/rupture of forebag. - She is s/p epidural placement, comfortable. - Cervix is now 10/100/+1, BERTHA position suspected. Plan to start maternal expulsive efforts. - BT A+ - GBS negative - EFW on 10/20 with composite EFW 75%ile, AC 86%ile. Counseled she is high risk for shoulder dystocia in the setting of GDMA2. Discussed potential interventions that could be required if shoulder dystocia occurs. Counseled on risks including cord compression, hypoxia, neurologic compromise, brachial plexus injury and demise in catastrophic events. Plan to deliver with bed broken down in the event of shoulder, team aware of risk. Patient expressed understanding and is agreeable to plan.
[2024-11-11] MEDS: IBUPROFEN 600 MG TABLET PO ×2 (14:31→20:42)
[2024-11-12 02:03] VITALS: BP 119/78; PULSE 105; RESP 16; TEMP 36.7; O2SAT 98
[2024-11-12] MEDS: IBUPROFEN 600 MG TABLET PO ×2 (02:05→09:07)
[2024-11-12 05:01] VITALS: BP 120/76; PULSE 106; RESP 16; TEMP 36.8; O2SAT 96
[2024-11-12 07:56] LABS: Hemoglobin* 9.3 gm/dL (12.0-16.0)
[2024-11-12 09:02] VITALS: BP 113/75; PULSE 108; RESP 16; TEMP 37.1
[2024-11-12] MEDS: DOCUSATE SODIUM 100 MG CAPSULE PO (09:06)
[2024-11-12] MEDS: FERROUS SULFATE 325 MG TABLET PO (09:07)
--- NOTE | 2024-11-12 12:14 | P.DS_ITS ---
DS: Providers Provider Time Seen by Provider: 09:05 Date Seen: 11/12/24 Date of admission: 11/10/24 16:29 Primary care physician: Not a Local Provider Admitting Clinician: Carley Hatfield MD Attending Physician on discharge: Carley Hatfield MD Date of Discharge: 11/12/24 DS: Diagnosis Discharge Diagnosis (1) Anemia due to acute blood loss: Status: Acute (2) GDM, class A2: Status: Acute (3) (vaginal after ): Status: Acute Exam 2 Narrative: Exam Narrative: GENERAL APPEARANCE: Pleasant, , well-groomed woman in no acute distress. VITAL SIGNS: as noted in nursing notes HEAD: Normocephalic, atraumatic. THYROID: no masses, nodularity, tenderness or enlargement. LUNGS: Clear to auscultation bilaterally without wheezes, rales or rhonchi. HEART: Regular rate and rhythm with normal S1 and S2. No gallop, rub or murmur. ABDOMEN: Gravid. Soft, nontender, nondistended, with normal bowels sounds throughout. Fundus is firm 2 cm below the umbilicus in the midline. EXTREMITIES: No cyanosis, clubbing, or edema. No varicosities. NEUROLOGIC: Normal gait and balance. Normal deep tendon reflexes at bilateral patella 2+/2, equal without clonus. PSYCHIATRIC: alert and oriented x3. Normal speech pattern, eye contact and affect. SKIN: Warm, dry, and well perfused. Good turgor. No lesions, nodules or rashes. Const: Vital Signs, click to edit/add: Vital Signs - 24 hr 11/11/24 12:15 11/11/24 12:23 11/11/24 12:34 Temperature Pulse Rate 90 102 H Pulse Rate [Blood Pressure Cuff] Respiratory Rate Blood Pressure 131/70 135/71 Blood Pressure [Ri ght Arm] Pulse Oximetry 98 Oxygen Delivery Me thod 11/11/24 12:44 11/11/24 13:11 11/11/24 13:14 Temperature Pulse Rate 101 H 88 90 Pulse Rate [Blood Pressure Cuff] Respiratory Rate Blood Pressure 142/77 H 130/74 129/70 Blood Pressure [Ri ght Arm] Pulse Oximetry Oxygen Delivery Me thod 11/11/24 13:44 11/11/24 13:59 11/11/24 14:14 Temperature Pulse Rate 96 104 H 98 Pulse Rate [Blood Pressure Cuff] Respiratory Rate Blood Pressure 126/64 127/64 129/69 Blood Pressure [Ri ght Arm] Pulse Oximetry Oxygen Delivery Me thod 11/11/24 14:29 11/11/24 16:19 11/11/24 20:37 Temperature 98.8 F 97.6 F Pulse Rate 100 Pulse Rate [Blood Pressure Cuff] 75 109 H Respiratory Rate 16 16 Blood Pressure 131/66 Blood Pressure [Ri ght Arm] 120/75 127/79 Pulse Oximetry 97 Oxygen Delivery Me thod Room Air Room Air 11/12/24 02:03 11/12/24 05:01 11/12/24 09:02 Temperature 98.1 F 98.2 F 98.7 F Pulse Rate Pulse Rate [Blood Pressure Cuff] 105 H 106 H 108 H Respiratory Rate 16 16 16 Blood Pressure Blood Pressure [Ri ght Arm] 119/78 120/76 113/75 Pulse Oximetry 98 96 Oxygen Delivery Me thod Room Air Room Air Room Air OB - DS: Summary Hospital Course Hospital Course: Chelsie is a 28 year old G 4 P 0121 now 2 at 39 and 0/7 weeks gestation that was admitted to the Center on 11/10/24 for induction of labor due to GDM A2 with good control. She also desired a TOLAC. She had an uncomplicated vaginal delivery. She delivered a viable male . She is breast feeding. the patient has done well. Peripartum Data delivery method: Vaginal Laceration description: Perineal - 2nd Degree Infant Gender: Male Status at Discharge Functional status at discharge: independent ambulation Overall status at discharge: patient is progressing back to baseline Time Spent with Patient Time attestation: Total time spent providing and/or coordinating discharge services: Discharge Plan Discharge Disposition: Home, Self-Care Date of Admission: 11/10/24 16:29 Attending Provider on Discharge: Carley Hatfield Consulting Providers: Kamilla Wilkinson Primary Care Provider: Provider,Not a Local Condition: Stable Anticipated Discharge Date/Time: 11/12/24 18:00 Discharge Medications: New docusate sodium 100 mg Capsule 100 mg PO BID PRN (Reason: constipation) Qty: 100 0RF ibuprofen 600 mg Tablet 600 mg PO Q6H PRNQty: 30 0RF Continued DHA 200 mg capsule 200 mg PO DAILY ferrous sulfate 325 mg (65 mg iron) tablet,delayed release (DR/EC) 325 mg PO Q OTHER DAY Qty: 90 1RF sertraline 50 mg tablet 50 mg PO QDAY Qty: 90 3RF Discontinued aspirin [Adult Low Dose Aspirin] 81 mg tablet,delayed release (DR/EC) 81 mg PO QDAY Discharge Orders: Discharge Order (Routine); Ordered 11/12/24 Ordered By: Carley Hatfield Patient Education: Vaginal Delivery (DC) Additional Instructions: Discharge instructions were reviewed with the patient including signs and symptoms of infection and home going medications Nothing vaginally for 6 weeks: no tampons or intercourse No exercise or lifting restrictions. Off Work or School for a minimum of 6 weeks Symptoms to report to doctor: * Bleeding that saturates more than one pad per hour * Passing clots larger than the size of a golf ball * Pain not relieved by prescribed medication * Fever above 100.4 degrees Fahrenheit * A foul vaginal odor * Difficulty in emotions, mood, and functions * Thoughts of hurting yourself and/or * Painful, reddened area in your breast * Any drainage, redness, or tenderness in your IV/epidural site * Severe headache that doesn't improve after taking medications * Changes in vision, including temporary loss of vision, blurred vision, and/or light sensitivity * Upper abdominal pain (usually under ribs on the right side) * Decrease in urination or painful, frequent urinating * Chest pain * Shortness of breath * Tenderness or pain with redness and/swelling in the calf(s) of your leg Follow-up appointments: 1. Optional 2-week visit: discuss feeding concerns, review control options and screen for anxiety/depression. 2. 6-week visit for an annual exam. 3. Establish care with a primary care provider to discuss diabetes: your fasting glucose was elevated on 11/12/24 = 131. When fasting sugar is >/= 126 it suggests continuing diabetes (type 2). consultation services are available to all mothers and babies for the first year after delivery.? To make an appointment, please call [phone]. Activity Level: Other Follow Up Appointments: Provider,Not a Local [Primary Care Provider, Family Practice] [facility] [Outside] Forms: Diaferon Info Instructions
[2024-11-12] MEDS: MEASLES,MUMPS,RUBELLA VACC/PF 1 DOSE INJ 1 EACH SUBCUT (15:33)
== END 2024-11-12 16:30 | disposition home or self-care (01) | DRG 806 ==
PROVIDERS: Obstetrics & Gynecology; Admitting Provider Obstetrics & Gynecology; Visit Provider Obstetrics & Gynecology
DX: O24.424 Gestational diabetes mellitus in childbirth, insulin controlled (principal); D62 Acute posthemorrhagic anemia; Z37.0 Single live birth; O34.211 Maternal care for low transverse scar from previous cesarean delivery; R03.0 Elevated blood-pressure reading, without diagnosis of hypertension; O70.1 Second degree perineal laceration during delivery; O99.344 Other mental disorders complicating childbirth; O99.02 Anemia complicating childbirth; F41.9 Anxiety disorder, unspecified; Z28.39 Other underimmunization status; Z79.4 Long term (current) use of insulin; Z3A.39 39 weeks gestation of pregnancy
CPT/HCPCS: 01967; 36415; 59200; 82962; 85018; 85025; 86592; 86850; 86900; 86901; 88307; A9270; C1726; J2795; J3010; J7120

== ENCOUNTER 2024-12-23 10:33 | Outpatient (CLI) | payer OTHER, SELFPAY ==
[2024-12-24 23:47] LABS: HPV Source Cervix
[2024-12-27 15:16] LABS: Pap Test Digital Imaging Done
== END 2024-12-23 10:34 | disposition home or self-care (01) ==
PROVIDERS: Visit Provider Registered Nurse
DX: Z39.2 Encounter for routine postpartum follow-up (principal); D62 Acute posthemorrhagic anemia; N39.41 Urge incontinence
CPT/HCPCS: 87086; 87624; 87625; 88141; 88142; 88175